=== PATIENT | female | born 1995 | race Hispanic/Latino ===

== ENCOUNTER 2017-10-06 16:10 | Emergency (ER) | payer BC, OTHER ==
[~2017-10-06] VITALS: Ht 162.6 cm; Wt 59.0 kg
[~2017-10-06 16:10] MED LIST: CLARITIN10 M2 PO
--- OUTSIDE RECORDS SUMMARY | 2017-10-06 16:12 | XMS REPORT | Summary of Care ---
Author Author ILEANA BORGES M.D. Organization Unknown Address [facility] Phone Unavailable Care Team Providers Care Shallot Packer Name Role Phone ILEANA BORGES M.D. 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 * Start : 04-Nov-2015 Active Meloxicam 7.5 MG Oral Tablet TAKE 1 TABLET DAILY NEEDED. * Quantity: 30 Refills: 0 ILEANA BORGES M.D. * Start : 04-Sep-2016 Active Promethazine HCl - 25 MG Oral Tablet ONE TAB EVERY 6 HOURS PRN NAUSEA * Quantity: 30 Refills: 0 ILEANA BORGES M.D. * Start : 24-May-2017 Active Allergies and Adverse Reactions Name Dates Details No Known Allergies (Allergy) Status: Active Past Medical History Name Dates Details History of No pertinent past surgical history Status: Resolved No pertinent past medical history Status: Resolved Procedures Procedure Dates Details History of Knee Surgery Completed Immunization Name Dates Details Immunizations not documented Family History Name Dates Details Family history of diabetes mellitus (V18.0, Z83.3) Comments: Family History Status: Active Family history of essential hypertension (V17.49, Z82.49) Comments: Family History Status: Active Social History Name Dates Details - Status: Name Dates Details Never smoker Vital Signs Date Test Result Details No Known Vitals to report Results Date Description Value Details Results not documented Plan of Care Name Dates Details Planned Observations Planned Goals not documented Interventions Provided Plan* Patient Education/Instructions: * Patient Education Provided * Reassurance * Counseling Provided. * Weightbearing status:. * Patient/Parent to call or return with any abnormal changes * Apply Ice as Instructed * Follow Up: * Return to the clinic in 4 week(s) or as needed. * Patient seen and examined by Physician. Instructions Name Dates Details Instructions not documented Encounters Appointment; ILEANA BORGES M.D. Encounter Diagnosis: Problem not documented On: 18-Aug-2015 9:00 Appointment; ILEANA BORGES M.D. Encounter Diagnosis: Problem not documented On: 11-Oct-2015 15:15 Appointment; ILEANA BORGES M.D. Encounter Diagnosis: Problem not documented On: 04-Nov-2015 7:30 Appointment; ILEANA BORGES M.D. Encounter Diagnosis: Problem not documented On: 07-Nov-2015 10:00 Appointment; ILEANA BORGES M.D. Encounter Diagnosis: Problem not documented On: 28-Nov-2015 13:30 Appointment; ILEANA BORGES M.D. Encounter Diagnosis: Problem not documented On: 06-Dec-2015 10:15 Appointment; ILEANA BORGES M.D. Encounter Diagnosis: Problem not documented On: 30-Jul-2016 13:45 Appointment; ILEANA BORGES M.D. Encounter Diagnosis: Problem not documented On: 04-Sep-2016 11:45 Appointment; ILEANA BORGES M.D. Encounter Diagnosis: Problem not documented On: 23-Oct-2016 11:30 Appointment; ILEANA BORGES M.D. Encounter Diagnosis: Problem not documented On: 09-Apr-2017 10:45 Appointment; ILEANA BORGES M.D. Encounter Diagnosis: Problem not documented On: 30-Apr-2017 10:15 Appointment; ILEANA BORGES M.D. Encounter Diagnosis: Problem not documented On: 30-Apr-2017 10:45 Appointment; ILEANA BORGES M.D. Encounter Diagnosis: Problem not documented On: 23-May-2017 10:30 Appointment; ILEANA BORGES M.D. Encounter Diagnosis: Problem not documented On: 29-May-2017 8:00 Appointment; ILEANA BORGES M.D. Encounter Diagnosis: Problem not documented On: 30-May-2017 11:00
[2017-10-06] MEDS ORDERED: HYDROCODONE/APAP 5MG-325MG TAB PO ONE (16:30)
== END 2017-10-06 20:10 | disposition home or self-care (01) ==
LOC: FSED 16:10
DX: R10.30 Lower abdominal pain, unspecified (principal); N83.202 Unspecified ovarian cyst, left side
CPT/HCPCS: 76705; 76830; 76857; 81003; 81025; 99283

== ENCOUNTER 2017-12-04 01:39 | Emergency (ER) | payer BC ==
[~2017-12-04] VITALS: Ht 162.6 cm; Wt 59.0 kg
[2017-12-04] MEDS ORDERED: MORPHINE SULFATE 2 MG/ML SYR IV STA (02:04)
[2017-12-04] MEDS ORDERED: ONDANSETRON HCL INJ 2 MG/ML VIAL IV STA (02:04)
[2017-12-04] MEDS ORDERED: SODIUM CHLORIDE 0.9% 1000ML 1,000 ML IV SCH (02:15)
[2017-12-04] MEDS ORDERED: HYDROCODONE/APAP 5MG-325MG TAB PO ONE (03:00)
== END 2017-12-04 03:30 | disposition home or self-care (01) ==
LOC: FSED 01:39
DX: R10.32 Left lower quadrant pain (principal); N83.202 Unspecified ovarian cyst, left side
CPT/HCPCS: 80053; 81003; 81025; 85025; 99284; J2270; J2405

== ENCOUNTER 2018-05-01 22:47 | Emergency (ER) | payer BC ==
[~2018-05-01] VITALS: Ht 154.9 cm; Wt 72.6 kg
[2018-05-02 00:07] VITALS: BP 118/87
== END 2018-05-02 00:22 | disposition home or self-care (01) ==
LOC: FSED 22:47
DX: M94.0 Chondrocostal junction syndrome [Tietze] (principal)
CPT/HCPCS: 93005; 99282